=== PATIENT | female | born 1960 | race Caucasian/White ===

== ENCOUNTER → 2017-02-27 | Outpatient (CLI) | payer OTHER | END | disposition home or self-care (01) | LOC: CFH 12:19 → MERGE 12:19 | PROVIDERS: ATTEND Family Medicine | DX: Z12.31 Encounter for screening mammogram for malignant neoplasm of breast (principal) | CPT/HCPCS: G0202 ==

== ENCOUNTER → 2018-02-20 | Outpatient (CLI) | payer OTHER ==
[~2018-02-20] MED LIST: CHOL500015 PO; DOCU250C9 PO; DULO30CA2 PO; ESTR0.5T PO; GABA300C PO; HEAL N SOOTHE PO; LEVO25TA4 PO; LORA10TA3 PO; MORP30TA PO; MULT-224 PO; OMEG1CAP25 PO; SIMV10TA3 PO
[2018-02-20 13:39] LABS: BASOPHILS # (AUTO) 0.03 x10^3/uL (0-0.1); BASOPHILS % (AUTO) 1 % (0-1); EOSINOPHILS # (AUTO) 0.11 x10^3/uL (0-0.4); EOSINOPHILS % (AUTO) 2 % (1-7); LYMPHOCYTES # (AUTO) 1.33 x10^3/uL (1-3.4); LYMPHOCYTES % (AUTO) 24 % (22-44); MD NO; MEAN CORPUSCULAR HEMOGLOBIN 31.1 pg (27.0-34.8); MEAN CORPUSCULAR HGB CONC 33.9 g/dL (32.4-35.8); MEAN CORPUSCULAR VOLUME 91.7 fL (80-100); MEAN PLATELET VOLUME 9.6 fL (7.4-10.4); MONOCYTES # (AUTO) 0.29 x10^3/uL (0.2-0.8); MONOCYTES % (AUTO) 5 % (2-9); NEUTROPHILS # (AUTO) 3.76 x10^3/uL (1.8-6.8); NEUTROPHILS % (AUTO) 68 % (42-75); PLATELET COUNT 187 x10^3/uL (130-400); RED BLOOD COUNT 5.37 x10^6/uL (3.82-5.3); RED CELL DISTRIBUTION WIDTH 12.2 % (9.6-15.2)
[2018-02-20 13:46] LABS: ALANINE AMINOTRANSFERASE 28 U/L (12-78); ALBUMIN 3.9 g/dL (3.4-5.0); ANION GAP 7 mmol/L (5-15); CALCIUM 8.9 mg/dL (8.5-10.1); CHLORIDE 106 mmol/L (98-107); CREATININE 0.66 mg/dL (0.55-1.02)
[2018-02-20 13:48] LABS: ALKALINE PHOSPHATASE 72 U/L (45-117); BILIRUBIN,TOTAL 0.4 mg/dL (0.2-1.0); TOTAL PROTEIN 7.2 g/dL (6.4-8.2)
[2018-02-20 13:53] LABS: MICROSCOPIC AUTO
[2018-02-20 13:56] LABS: CULTURE INDICATED? YES
== END ==
LOC: STAR 12:45 → MERGE 13:00
PROVIDERS: ATTEND Orthopaedic Surgery Adult Reconstructive Orthopaedic Surgery
DX: M16.11 Unilateral primary osteoarthritis, right hip (principal)
CPT/HCPCS: 36415; 80053; 81001; 85025; 87081; 87086; 93005

== ENCOUNTER 2018-02-26 05:35 | Inpatient (IN) | payer OTHER ==
[~2018-02-26] VITALS: Ht 167.6 cm; Wt 78.1 kg
[~2018-02-26 05:35] MED LIST changes: +CEFAZOLIN 2,000 MG in DEXTROSE 5% 100 ML IVPB SCH
[2018-02-26] MEDS ORDERED: VANCOMYCIN PER PHARMACY MC STA (06:02)
[2018-02-26] MEDS ORDERED: LACTATED RINGERS 1,000 ML IV SCH (06:13)
[2018-02-26] MEDS ORDERED: VANCOMYCIN PMX 1GM/200ML 200 ML IV ONE (06:30)
[2018-02-26] MEDS ORDERED: BACITRACIN OINT 500U/GM, 15 GM ONE (06:30)
[2018-02-26] MEDS ORDERED: EPINEPHRINE 1 MG/ML, 1ML ONE (06:30)
[2018-02-26] MEDS ORDERED: BUPIVACAINE/PF 0.25% ONE (06:30)
[2018-02-26] MEDS ORDERED: TRANEXAMIC ACID 100 MG/ML, 10ML ONE (06:30)
[2018-02-26] MEDS ORDERED: MIDAZOLAM 1 MG/ML, 2ML ONE (06:41)
[2018-02-26] MEDS ORDERED: FENTANYL PF 250 MCG/5ML ONE (06:41)
[2018-02-26] MEDS ORDERED: PROPOFOL 10 MG/ML, 20ML ONE (06:43)
[2018-02-26] MEDS ORDERED: LIDOCAINE-MPF 2% ,5ML ONE (06:43)
[2018-02-26] MEDS ORDERED: WATER-INJECTION,STERILE 10 ML IV ONE (06:46)
[2018-02-26] MEDS ORDERED: CEFAZOLIN 1,000 MG ONE ×2 (06:46)
[2018-02-26] MEDS ORDERED: PHENYLEPHRINE 10 MG/ML ONE (06:46)
[2018-02-26 06:49] VITALS: BP 123/85
[2018-02-26] MEDS ORDERED: ONDANSETRON ODT 8 MG ONE (06:55)
[2018-02-26] MEDS ORDERED: OxyconTIN ER 20 MG TAB.ER PO ONE (07:00)
[2018-02-26] MEDS ORDERED: ACETAMINOPHEN 500 MG TABLET PO ONE (07:00)
[2018-02-26] MEDS ORDERED: ONDANSETRON ODT 8 MG PO ONE (07:00)
[2018-02-26] MEDS ORDERED: KETAMINE 10 MG/ML, 20ML ONE (07:02)
[2018-02-26] MEDS ORDERED: DEXAMETHASONE 4 MG/ML, 1ML ONE ×2 (07:12)
[2018-02-26] MEDS ORDERED: LABETALOL 5MG/ML, 20ML IV PRN (07:30)
[2018-02-26] MEDS ORDERED: OXYcodone 5 MG/5 ML ORAL.SOL UDC PO PRN (07:30)
[2018-02-26] MEDS ORDERED: PROMETHAZINE 25 MG/ML, 1ML IV PRN (07:30)
[2018-02-26] MEDS ORDERED: LORazepam 2 MG/ML, 1ML IVPush PRN (07:30)
[2018-02-26] MEDS ORDERED: METOCLOPRAMIDE 5 MG/ML, 2ML IV PRN (07:30)
[2018-02-26] MEDS ORDERED: hydrALAzine 20 MG/ML, 1ML IV PRN (07:30)
[2018-02-26] MEDS ORDERED: MORPHINE SULFATE 4 MG/ML, 1ML ONE ×5 (08:01→09:56)
[2018-02-26] MEDS ORDERED: FENTANYL PF 100 MCG/2ML ONE (08:16)
[2018-02-26] MEDS ORDERED: MEPERIDINE/PF 50 MG/ML ONE (08:17)
[2018-02-26] MEDS: MEPERIDINE/PF 25MG/0.5ML IVPush PRN ×2 (08:21→08:31)
[2018-02-26] MEDS: FENTANYL PF 100 MCG/2ML IV PRN ×2 (08:25→08:33)
[2018-02-26] MEDS: morphine SULFATE 10 MG/ML, 1ML IV PRN ×2 (08:44→09:00)
[2018-02-26] MEDS ORDERED: OXYcodone 5 MG/5 ML ORAL.SOL UDC ONE (08:49)
[2018-02-26] MEDS ORDERED: PROMETHAZINE 25 MG SUPP PR PRN (10:00)
[2018-02-26] MEDS ORDERED: BISACODYL 10 MG SUPP PR PRN (10:00)
[2018-02-26] MEDS ORDERED: ONDANSETRON ODT 4 MG PO PRN (10:00)
[2018-02-26] MEDS ORDERED: PROMETHAZINE 25 MG/ML, 1ML IM PRN (10:00)
[2018-02-26] MEDS ORDERED: MAGNESIUM HYDROXIDE 8%, 30ML UDC PO PRN (10:00)
[2018-02-26] MEDS ORDERED: DIPHENHYDRAMINE 25 MG CAPSULE PO PRN (10:00)
[2018-02-26] MEDS ORDERED: DIAZEPAM 5 MG TABLET PO PRN (10:00)
[2018-02-26] MEDS ORDERED: SENNA/DOCUSATE TABLET PO PRN (10:00)
[2018-02-26] MEDS ORDERED: SCOPOLAMINE PATCH, 1.5MG PATCH.TD72 TD SCH (10:00)
[2018-02-26] MEDS ORDERED: HYDROcodone/APAP 10/325 MG TABLET PO PRN (10:00)
[2018-02-26] MEDS ORDERED: ZOLPIDEM 5MG TABLET PO PRN (10:00)
[2018-02-26] MEDS ORDERED: ALUMINUM/MAG/SIMETHICONE 30 ML UDC PO PRN (10:00)
[2018-02-26] MEDS ORDERED: ONDANSETRON 2MG/ML, 2ML IVPush PRN (10:00)
[2018-02-26] MEDS ORDERED: morphine SULFATE 10 MG/ML, 1ML IV PRN (10:00)
[2018-02-26] MEDS: OXYcodone IR 5MG TABLET PO PRN ×3 (12:58→21:05)
[2018-02-26 14:10] VITALS: BP 90/59
[2018-02-26] MEDS ORDERED: CEFAZOLIN PMX 2GM/100ML 100 ML IVPB SCH (15:00)
[2018-02-26] MEDS ORDERED: morphine SULFATE 15 MG TAB.IR ONE (16:50)
[2018-02-26] MEDS: SODIUM CHLORIDE 0.9% 1,000 ML IV SCH ×2 (16:51→20:23)
[2018-02-26] MEDS ORDERED: GABAPENTIN 300 MG CAPSULE ONE (16:57)
[2018-02-26 19:39] VITALS: BP 107/65
[2018-02-26] MEDS: DOCUSATE 100 MG CAPSULE PO SCH (20:21)
[2018-02-26] MEDS: GABAPENTIN 300 MG CAPSULE PO SCH (20:21)
[2018-02-26] MEDS: DOCUSATE 50 MG/5 ML, 10ML UDC PO SCH (20:36)
[2018-02-26] MEDS: SODIUM CHLORIDE FLUSH 10ML SYR IVF SCH (20:37)
[2018-02-26] MEDS ORDERED: SIMVASTATIN 10 MG TABLET PO SCH (21:00)
[2018-02-27 00:01] VITALS: BP 119/75
[2018-02-27] MEDS: OXYcodone IR 5MG TABLET PO PRN ×3 (01:17→09:55)
[2018-02-27] MEDS: ACETAMINOPHEN 325 MG TABLET PO PRN ×2 (01:19→09:55)
[2018-02-27] MEDS ORDERED: CEFAZOLIN PMX 2GM/50ML 50 ML IVPB ONE (03:00)
[2018-02-27 04:00] VITALS: BP 119/76
[2018-02-27] MEDS ORDERED: LEVOTHYROXINE 25 MCG TABLET PO SCH (06:00)
[2018-02-27] MEDS ORDERED: DEXAMETHASONE 10 MG in SODIUM CHLORIDE 0.9% 50 ML IV ONE (06:00)
[2018-02-27] MEDS ORDERED: ASPIRIN 325 MG TABLET EC PO SCH (06:00)
[2018-02-27] MEDS: SODIUM CHLORIDE 0.9% 1,000 ML IV SCH (06:00)
[2018-02-27 07:47] VITALS: BP 114/67
[2018-02-27] MEDS ORDERED: CHOLECALCIFEROL 1,000 UNIT TABLET PO SCH (09:00)
[2018-02-27] MEDS ORDERED: MULTIVITAMINS/MINERALS TABLET PO SCH (09:00)
[2018-02-27] MEDS ORDERED: LORATADINE 10 MG TABLET PO SCH (09:00)
[2018-02-27] MEDS: DOCUSATE 50 MG/5 ML, 10ML UDC PO SCH (09:00)
[2018-02-27] MEDS ORDERED: MULTIVITAMIN 1 TABLET PO SCH (09:00)
[2018-02-27] MEDS: SODIUM CHLORIDE FLUSH 10ML SYR IVF SCH (09:00)
[2018-02-27] MEDS ORDERED: DULOXETINE 30 MG CAPSULE.DR PO SCH (09:00)
[2018-02-27] MEDS: DOCUSATE 100 MG CAPSULE PO SCH (09:47)
[2018-02-27] MEDS: GABAPENTIN 300 MG CAPSULE PO SCH (09:47)
[2018-02-27] MEDS ORDERED: KETOROLAC 30 MG/1 ML IV SCH (10:00)
[2018-02-27] MEDS ORDERED: OXYC-307 PO (11:22)
[2018-02-27] MEDS ORDERED: MELO7.5T5 PO (11:23)
[2018-02-27] MEDS ORDERED: ASPI-650 PO (11:24)
== END 2018-02-27 12:20 | disposition home or self-care (01) | DRG 470 ==
LOC: ORIP 05:35 → MERGE 07:00 → 4NOR 09:38 → DCLOUNGE 02-27 12:09
PROVIDERS: ADMIT Orthopaedic Surgery Adult Reconstructive Orthopaedic Surgery; ATTEND Orthopaedic Surgery Adult Reconstructive Orthopaedic Surgery
PROC: 0SR906Z Replacement of Right Hip Joint with Oxidized Zirconium on Polyethylene Synthetic Substitute, Open Approach (ICD-10-PCS; principal; 2018-02-26 07:00)
DX: M16.0 Bilateral primary osteoarthritis of hip (principal); E03.9 Hypothyroidism, unspecified; I10 Essential (primary) hypertension
CPT/HCPCS: 36415; 72170; 85014; 85018; 86850; 86900; C1713; J0171; J0690; J1100; J1885; J2175; J2250; J2704; J3010; J3370; J3490; Q0162; C1776; J2270; J2370; J7030; J7120